=== PATIENT | female | born 1990 | race Caucasian/White ===

== ENCOUNTER 2022-06-02 13:24 | Outpatient (CLI) | payer OTHER, SELFPAY ==
--- NOTE | ~2022-06-02 | MM_ITS ---
EXAMINATION: MM diagnostic verena BI w aleksander HISTORY: Intermittent breast pain. Maternal history of breast cancer. TECHNIQUE: ML, MLO and CC 3-D tomosynthesis images of both breasts were performed and synthetic 2-D i mages were generated. CAD analysis was submitted and interpreted. COMPARISON: None BREAST PARENCHYMAL COMPOSITION: There are scattered areas of fibroglandular density. FINDINGS: No suspicious mass or architectural distortion, malignant calcification, skin thickening or retraction is detected. IMPRESSION: 1. Negative 2. Routine mammographic screening beginning at age 40 is recommended BI-RADS Category 1: Negative Reviewed, dictated and finalized at location A. CH OFFICER
== END 2022-06-02 13:25 | disposition home or self-care (01) ==
LOC: ANHIMG 13:28
PROVIDERS: PCP Family Medicine; Visit Provider Nurse Practitioner Obstetrics & Gynecology
DX: N64.4 Mastodynia (principal)
CPT/HCPCS: 77062; 77066; G0279

== ENCOUNTER 2024-11-17 13:30 | Outpatient (CLI) | payer BC, SELFPAY ==
--- NOTE | ~2024-11-17 | MM_ITS ---
EXAMINATION: MM screening verena BI w aleksander HISTORY: Screening mammogram TECHNIQUE: Craniocaudal and mediolateral oblique 3-D tomosynthesis images were obtained and synthetic 2-D images were generated. CAD analysis was submitted and interpreted. COMPARISON: 06/02/2022 BREAST PARENCHYMAL COMPOSITION:Not Dense. There are scattered areas of fibroglandular density. FINDINGS: No suspicious mass, calcification, or architectural distortion are identified in either maciej ast to suggest malignancy. There has been no suspicious interval change. IMPRESSION: No mammographic evidence of malignancy. Recommend routine screening mammography in one year. BI-RADS Category 1: Negative Reviewed, dictated and finalized at location .
--- OUTSIDE RECORDS SUMMARY | 2024-11-17 15:19 | XMS_ITS | Referral Summary ---
Author Organization [facility] al Address [address] [place] [address] Care Team Providers Care Welding Machine Operator Electron Beam Name Role Phone Audelia Douglas MD Primary Care Provider Encounters Date Type Department Care Team Description 09/02/2024 6:15 PM BOWLING TEACHER Office Visit [facility] at [address] [address] Swetha Florez, ADRIAN Sore throat (Primary Dx); Laryngitis from Last 3 Months Allergies No known active allergies Medications no115/iron/foli c acid ( 19 ORAL) Take 1 tablet by mouth Active acetaminophen (TYLENOL) 325 mg tablet Take 2 tablets (650 mg total) by mouth every 4 (four) hours as needed for pain 60 tablet 9 Active Additional Information Patient not taking.Reported on 09/02/2024 ibuprofen (ADVIL,MOTRIN) 600 mg tabletIndicatio ns:Cramps,Pain Take 1 tablet (600 mg total) by mouth every 6 (six) hours as needed for pain 60 tablet 9 Active Additional Information Patient not taking.Reported on 09/02/2024 Active Problems Problem Noted Date Diagnosed Date Encounter for planned induction of labor 019 Overview (04/22/2019): 1. Induction of labor for gHTN: OT, increase per protocol. AROM @0940, clear. Will start AI now given recurrent variables. 2. gHTN: Mild range BP in [facility] and in [facility]. CMP/CBC WNL in [facility], UPC 0.1. SR BP @ 1125, mild range on repeat. Overall mild range-normotensive. Asx. 3. FWB: Continuous monitoring. tracing category II, reassured by moderate variability and rapid return to baseline. 4. ID: HIV negative. GBS negative per patient report. Membrane Status: AROM @0940 on 04/22 5. Indications for UDS: none 6. MOF: Plans to breastfeed. 7. MOC: Plans to use IUD at PP visit for contraception. 8. Pain management: Epidural placed. 9. Post DVT prophylaxis: Patient has the following moderate risk factors: BMI>30. Her post prophylaxis plan is SCDs and early ambulation care following vaginal delivery 04/22 Overview (04/23/2019): # ID: Afebrile. No signs/symptoms of infection. # Heme: EBL 100 mL. No symptoms acute blood loss anemia. # CV/Pulm: Gestational hypertension - Blood pressures well controlled on no medications. Asymptomatic, denies FIORE/RUQ pain/vision changes. CBC/CMP wnl, UPC 0.1. # GI/: Tolerating PO. Voiding spontaneously. # Pain: Controlled with above regimen. # Post DVT prophylaxis: Patient has the following moderate risk factors: None. Her post prophylaxis plan is SCDs and early ambulation # MOC: Desires IUD at visit; declines bridge. # MOF: # Disposition: Continue routine care Gestational hypertension affecting second pregna ncy 04/19/2019 Overview (04/19/2019): - [facility] VISIT 04/19/2019: - BP mild range mild range - no neuro symptoms - labs unremarkable - urine unremarkable - DX GHTN based on BP today in [facility] and BP at 32 week appointment on - return precautions given -Patient wishes to deliver at [place] but OB is at [facility]. IOL scheduled through [facility] and approved by Dr. Nino. Patient instructed to bring all of her records to IOL Immunizations Immunization Administration Dates Next Due Influenza, Unspecified 03/23/2019 Social History Tobacco Use Types Packs/Day Years Used Date Smoking Tobacco: Never Smokeless Tobacco: Never Alcohol Use Standard Drinks/Week Comments Not Currently 0 (1 standard drink = 0.6 oz pur e alcohol) social Comments No Sex and Gender Information Value Date Recorded Sex Assigned at Not on file Legal Sex Female 9:07 AM BOWLING TEACHER Gender Identity Not on file Sexual Orientation Not on file Last Filed Vital Signs Vital Sign Reading Time Taken Comments Blood Pressure 128/77 09/02/2024 6:22 PM BOWLING TEACHER Pulse 62 09/02/2024 6:22 PM BOWLING TEACHER Temperature 36.8 C (98.3 F) 09/02/2024 6:22 PM BOWLING TEACHER Respiratory Rate 18 09/02/2024 6:22 PM BOWLING TEACHER Oxygen Saturation 97% 09/02/2024 6:22 PM BOWLING TEACHER Inhaled Oxygen Concentration - - Weight 103.6 kg (228 lb 4.8 oz) 09/02/2024 6:22 PM BOWLING TEACHER Height 166.4 cm (5' 5.51 ) 09/02/2024 6:22 PM CS T Body Mass Index 37.4 09/02/2024 6:22 PM BOWLING TEACHER Plan of Treatment Not on file Procedures Procedure Name Priority Date/Time Associated Diagnosis Comments POC INFLUENZA A/B, COVID-19 ANTIGEN Routine 09/02/2024 7:03 PM BOWLING TEACHER Laryngitis POCT RAPID STREP Routine 09/02/2024 6:44 PM BOWLING TEACHER Laryngitis from Last 3 Months Results * POC Influenza A/B, COVID-19 antigen (09/02/2024 7:03 PM BOWLING TEACHER) Influenza A Ag, POC Negative Negative [facility] Influenza B Ag, POC Negative Negative [facility] COVID-19 Ag POC Presumptive Negative Presumptive Negative, Invalid [facility] Nasal 09/02/2024 7:03 PM BOWLING TEACHER us Swetha Florez [employer] CASE WORKER POINT OF CARE TEST ORDERAB LES Final Result [facility] [address] [place] [address] * POCT rapid strep A (09/02/2024 6:44 PM BOWLING TEACHER) Rapid Strep A, POC Negative Negative Swab 09/02/2024 6:44 PM BOWLING TEACHER Swetha Florez [employer]OTECTIVE SERVICES CASE WORKER POINT OF CARE TEST ORDERAB LES Final Result from Last 3 Months Insurance [facility] Advance Directives For more information, please contact: [phone] * Full Code (Latest Code Status on File) Date Activated Date Inactivated Comments 04/22/2019 5:05 PM 04/24/2019 6:52 PM * Full Code Date Activated Date Inactivated Comments 04/22/2019 7:12 AM 04/22/2019 5:04 PM Full CPR in case of cardiopulmonary arrest Care Teams Welding Machine Operator Electron Beam Relationship Specialty Start Date End Date Audelia Douglas MD [address] [facility] [address] [place] [address] PCP - General 04/19/19
--- OUTSIDE RECORDS SUMMARY | 2024-11-17 15:19 | XMS_ITS | Clinical Summary ---
Author Organization [facility] Care Team Providers Care Piece Maker Name Role Phone Unavailable Primary Care Provider Unavailabl e Social History Tobacco Use Types Packs/Day Years Used Date Smoking Tobacco: Never Assessed Comments Unknown Sex and Gender Information Value Date Recorded Sex Assigned at Not on file Legal Sex Female 10:31 AM GOLD BLOWER Gender Identity Not on file Sexual Orientation Not on file Plan of Treatment Health Maintenance Due Date Last Done Comments Hepatitis C Virus (HCV) Screening 1991 TdaP Immunization 1991 Hepatitis B Immunization (1 of 3 - 19+ 3-dose series) 2010 Pap Smear 01/08/2012 Cervical Cancer Screening (CCS) 2021 HPV/Cotest 2021 Influenza Immunization (#1) 2024 SARS-COV-2 Immunization ( season) 2024 Respiratory Syncytial Virus (RSV) Immunization (Adult) (1 - 1-dose 75+ series) 2066 Meningococcal Immunization (ACWY) Aged Out No longer eligible based on patient's age to complete this topic Pneumococcal Immunization Combined Aged Out No longer eligible based on patient's age to complete this topic Rotavirus Immunization Aged Out No lo nger eligible based on patient's age to complete this topic
--- OUTSIDE RECORDS SUMMARY | 2024-11-17 15:19 | XMS_ITS | Data Portability ---
Author Organization [facility] Address [address] [place] [address] [address] Care Team Providers Care Manager Knowledge Name Role Phone HAYLEE GREENE Primary Care Provider Assessment No assessment recorded. Plan of Treatment Reminders Order Date Submit Date Provider Last Modified By Organization Details Last Modified Time Details Appointments None recorded. Lab pap, IG + HR HPV - HPV regardless but if HPV is positive need subtyping 16,18/45add ct/gc/trich [address] [facility] (Lab), [address], [place], [address], 5 11:57:16 hereditary breast + gynecologic cancer multigene analysis, blood or tissue 2024 025 [email or web address] [facility], [address], [address], [place], [address], 5 13:00:18 Referral None recorded. Procedures None recorded. Surgeries None recorded. Imaging US, pelvis 2021 022 [email or web address] [place], [address], [place], [address], 20:35:56 US, transvagina l 2021 022 [email or web address], [address], [place], [address], 20:35:56 US, breast, unilateral - May do mammogram if necessary [address] [facility], [address], [address], [place], [address], 14:35:08 US, pelvis, complete [address] [facility] [address], [place], [address], 14:34:56 Medication Orders None recorded. Patient TargetsNo targets recorded. Patient InstructionsNo instructions recorded. Reason for Referral None Reported. Results Created Date Observation Date Name Description Value Unit Range Abnormal Flag Note LastModifiedBy Organization Detail LastModifiedTime 05/24/20 22 05/24/2022 IMAGE GUIDE D PAP AND HPV REGAR DLESS image guided Pap, HPV regardless of Pap result SEE RESULT S BELOW CASE REPOR T: Cytol ogy Gynec ologi marcy Repor t Case: [id number] Provi shani: Reji Raymond Colle cted: 05/24 1654 MARKETING MGR Order ing Locat ion: [place] Patho logy Recei zeus: 05/25 1104 First Scree n: Ruchi Llanos, CT Speci men: Scree tejas Pap - Image d, Cervi x STATE MENT OF ADEQU ACY: Satis facto ry for evalu ation Trans forma tion zone compo nent prese nt FINAL DIAGN OSIS: Negat liza for Intra epith elial Lesio n or Evelin arnold (NIL) . Funga l organ isms morph ologi eveline consi stent with Kellie da spp. Elect adore romero danica d by Ruchi Llanos, CT on 2021 at 2:18 PM ----- ----- ----- ----- ----- ----- ----- ----- ----- ----- ----- ----- ----- ----- ----- ----- ----- ---- HPV RESUL TS: HPV mRNA E6/E7 : No HPV mRNA Detec bonifacio NOTE: This high risk HPV mRNA assay detec ts fourt een high- risk HPV types (16, 18, 31, 33, 35, 39, 45, 51, 52, 56, 58, 59, 66, 68) witho ut diffe renti ation . COMME NT: Note: This speci men was revie wed by a Cytot echno logis t and/o r Patho logis t (as indic ated in this repor t) after evalu ation using the Thinp rep Imagi ng Syste m. CLINI MARCY INFOR MATIO N: Menst rual Statu s: LMP (if appli cable ): Clini marcy Histo ry/Pr eviou s Pap: Type of Neopl anna (if appli cable ): Signi fican t Clini marcy Findi ngs: Other Histo ry: Hormo jose (if appli cable ): PAP EDUCA SEBASTIAN L NOTE: The Pap Test is a scree tejas test with an inher ent false negat liza rate. Liqui d-bas ed sampl ing may decre ase, but will not elimi annie, false negat liza resul ts. A negat liza resul t does not precl ude the prese nce and/o r devel opmen t of disea se, since the prese nce of abnor mal cells in the sampl e depen ds on the locat ion of the lesio n and sampl ing techn ique. Katrin nued regul ar scree tejas is the best metho d of cance r preve ntion . If repor bonifacio cytol ogic findi ng do not corre late with physi marcy and/o r histo rical findi ngs, furth er inves tigat ion is recom rocio d, as clini eveline richardson nted. Not Available [facility] (Lab) [address] [facility], [place], [address], 05/29/2022 15:22:04 05/24/20 22 05/24/2022 TRICH OMONA S VAGIN LYUDMILA (RRNA ) trichomonas vaginalis ribosomal RNA (rrna) Negati ve negati ve Not Available [facility] (Lab) [address] [facility], [place], [address], 05/29/2022 15:22:05 05/24/20 22 05/24/2022 CT/GC (YOLA) , THINP REP VIAL chlamydia trachomatis, PCR Negati ve negati ve Not Available [facility] (Lab) [address] [facility], [place], [address], 05/29/2022 15:22:06 05/24/20 22 05/24/2022 CT/GC (YOLA) , THINP REP VIAL neisseria gonorrhoeae, PCR Negati ve negati ve Not Available [facility] (Lab) [address] [facility], [place], [address], 05/29/2022 15:22:06 11/06/19 25 11/05/2024 IMAGE GUIDE D PAP AND HPV REGAR DLESS image guided Pap, HPV regardless of Pap result SEE RESULT S BELOW abnormal CASE REPOR T: Cytol ogy Gynec ologi marcy Repor t Case: [id number] Provi shani: Deborah Townsend , ANP, DIESEL PLANT OPERATOR Colle cted: 11/05 1325 Order ing Locat ion: [place] Patho logy Recei zeus: 11/06 0945 First Scree n: Nupur Caraballo, CT Patho logis t: Kain Leiva MD Speci men: Aly lazaro Pap - Image d, Cervi x STATE MENT OF ADEQU ACY: Satis facto ry for evalu ation Trans forma tion zone compo nent prese nt ----- ----- ----- ----- ----- ----- ----- ----- ----- ----- ----- ----- ----- ----- ----- ----- ----- ---- FINAL DIAGN OSIS: Epith elial Cell Abnor malit y, Squam ous Cell: Atypi marcy Squam ous Cells of Undet ermin ed Reza deluna (ASC- US). Elect adore cardenas by Kain Leiva MD on 2024 at 1053 CDT ----- ----- ----- ----- ----- ----- ----- ----- ----- ----- ----- ----- ----- ----- ----- ----- ----- ---- HPV RESUL TS: HPV mRNA E6/E7 : Posit liza - HPV mRNA Detec bonifacio HPV GENOT YPE 16 (YOLA) : Not Detec bonifacio HPV GENOT YPE 18/45 (YOLA) : Not Detec bonifacio NOTE: This high risk HPV mRNA assay detec ts fourt een high- risk HPV types (16, 18, 31, 33, 35, 39, 45, 51, 52, 56, 58, 59, 66, 68) witho ut diffe renti ation . This assay can diffe renti ate HPV 16 from HPV 18/45 , but does not diffe renti ate betwe en HPV 18 and HPV 45. A negat liza HPV 16, 18/45 genot ype assay resul t does not exclu de the possi bilit y of cytol ogic abnor malit ies or of futur e or under lying TRINH 1, TRINH 3 or cance r. COMME NT: Slide scree mary ann valentin cao due to rejec tion by the Thinp rep Imagi ng Syste m. CLINI MARCY INFOR MATIO N: Menst rual Statu s: LMP (if appli cable ): Clini marcy Histo ry/Pr eviou s Pap: Type of Neopl anna (if appli cable ): Reza archer Clini marcy Findi ngs: Other Histo ry: Hormo jose (if appli cable ): SUGGE STED FOLLO W-UP: Follo w up as warra nted, based on curre nt guide lines and indiv idual patie nt consi derat ions. Not Available [facility] (Lab) [address] [facility], [place], [address], 11/10/2024 11:57:16 11/06/19 25 11/05/2024 CT/GC (YOLA) , THINP REP VIAL chlamydia trachomatis, PCR Negati ve negati ve Not Available [facility] (Lab) [address] [facility], [place], [address], 11/10/2024 11:57:17 11/06/19 25 11/05/2024 CT/GC (YOLA) , THINP REP VIAL neisseria gonorrhoeae, PCR Negati ve negati ve Not Available [facility] (Lab) [address] [facility], [place], [address], 11/10/2024 11:57:17 11/06/19 25 11/05/2024 TRICH OMONA S VAGIN LYUDMILA (RRNA ) trichomonas vaginalis ribosomal RNA (rrna) Negati ve negati ve Not Available [facility] (Lab) [address] [facility], [place], [address], 11/10/2024 11:57:17 05/29/20 22 05/29/2022 US, pelvi s No observ ation record ed. [email or web address] [place] [address], [place], [address], 05/29/2022 18:19:52 05/29/20 22 05/29/2022 US, trans vagin al No observ ation record ed. [email or web address] [place] [address], [place], [address], 05/29/2022 18:19:42 05/29/20 22 05/29/2022 US, pelvi s No observ ation record ed. MERARI Garcia [address], [place], [address], 06/05/2022 19:05:20 06/02/20 06/02/2022 MAMMO , diagn ostic , digit al, bilat eral No observ ation record ed. [facility] [address], [place], [address], 06/15/2022 12:04:15 Result Notes None recorded. Problems Name Problem SNOMED Code Status Onset Date Resolution Date Notes Provider Name and Address Organization Details Recorded Time Uterine size for dates discrepa ncy Completed 201805/23/2022 Uterine size-gris e discrepa ncy, third trimeste r;Record ed Elsewher e: No Locat ion: [facility] S ource: EHR Radio Board Operator Announcer adam: N Practi ce ID: [id number] Russ lable Time: 08:30:00 AM Trena Bansal [facility] 2 23:00:54 Clinical finding Completed 201905/23/2022 Other specifie d disorder s of breast;R ecorded Elsewher e: No Locat ion: [facility] S ource: EHR Radio Board Operator Announcer adam: N Practi ce ID: 0001 Russ lable Time: 10:15:00 AM Trena Bansal [facility] 2 23:00:54 Normal pregnanc y in multigra nova [id number] Completed 201805/23/2022 Encounte r for suprvsn of normal pregnanc y, third trimeste r;Record ed Elsewher e: No Locat ion: [facility] S ource: EHR Radio Board Operator Announcer adam: N Practi ce ID: [id number] Russ lable Time: 09:00:00 AM Trena mc [facility] 2 23:00:55 Antenata l screenin g for malforma tion Completed 201805/23/2022 Encounte r for antenata l screenin g for malforma tions;Re corded Elsewher e: No Locat ion: [facility] S ource: EHR Radio Board Operator Announcer adam: N Practi ce ID: [id number] Russ lable Time: 08:30:00 AM Trena mc [facility] 2 23:00:55 Antenata l screenin g Completed 201805/23/2022 Encounte r for other antenata l screenin g follow-u p;Record ed Elsewher e: No Locat ion: Nina diana [facility] S ource: EHR Radio Board Operator Announcer adam: N Enidti ce ID: [id number] Russ lable Time: 02:00:00 PM Trena mc [facility] 2 23:00:54 Pregnanc y detectio n examinat ion Completed 201805/23/2022 Encounte r for pregnanc y test, result positive ;Recorde d Elsewher e: No Locat ion: [facility] S ource: EHR Radio Board Operator Announcer adam: N Enidti ce ID: [id number] Russ lable Time: 02:00:[address] [facility] 2 23:00:55 Acute vaginiti s [id number] Completed 201805/23/2022 Vaginiti s;Record ed Elsewher e: No Locat ion: [facility] S ource: EHR Radio Board Operator Announcer adam: N Enidti ce ID: [id number] Russ lable Time: 09:00:[address]rena [address]ansal [facility] 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 2 23:00:55 Pityrias is versicol or [id number] Completed 201805/23/2022 Tinea versicol or;Recor ded Elsewher e: No Locat ion: Nina diana [facility] S ource: EHR Radio Board Operator Announcer adam: N Practi ce ID: [id number] Russ lable Time: 02:00:[address] [facility] 2 23:00:55 Gestatio n period, 35 weeks [id number] Completed 201805/23/2022 35 weeks gestatio n of pregnanc y;Record ed Elsewher e: No Locat ion: Nina diana [facility] S ource: EHR Radio Board Operator Announcer adam: N Practi ce ID: [id number] Russ lable Time: 08:30:[address] AM Trena Bansal [facility] 2 23:00:55 Gestatio n period, 8 weeks [id number] Completed 201805/23/2022 8 weeks gestatio n of pregnanc y;Record ed Elsewher e: No Locat ion: Ektatabby adalgisa [facility] S ource: EHR Radio Board Operator Announcer adam: N Practi ce ID: [id number] Russ lable Time: 01:45:[address] [facility] 2 23:00:55 Threaten ed miscarri age [id number] Completed 201805/23/2022 Threaten ed ;Recorde d Elsewher e: No Locat ion: Nina diana [facility] S ource: EHR Radio Board Operator Announcer adam: N Practi ce ID: [id number] Russ lable Time: 10:30:00 AM Trena Bansal [facility] 2 23:00:55 Educatio n Completed 201805/23/2022 Encounte r for other general counseli ng and advice on contrace ption;Re corded Elsewher e: No Locat ion: Livan adalgisa [facility] S ource: EHR Radio Board Operator Announcer adam: N Practi ce ID: [id number] Russ lable Time: 09:00:[address] Trena Bansal [facility] 2 23:00:[address] Concept Completed 201905/23/2022 Encntr for general adult medical exam w/o abnormal findings ;Recorde d Elsewher e: No Locat ion: Nina diana [facility] S ource: EHR Radio Board Operator Announcer adam: N Enidti ce ID: 0001 Russ lable Time: 08:30:37 AM Trena Bansal [facility] 2 23:00:55 Gestatio n period, 37 weeks [id number] Completed 201805/23/2022 37 weeks gestatio n of pregnanc y;Record ed Elsewher e: No Locat ion: Nina diaan [facility] S ource: EHR Radio Board Operator Announcer adam: N Enidti ce ID: [id number] Russ lable Time: 10:00:00 AM Trena Bansal [facility] 2 23:00:55 Lochia finding Completed 201805/23/2022 Encounte r for routine postpart um follow-u p;Record ed Elsewher e: No Locat ion: Lvian adalgisa [facility] S ource: EHR Radio Board Operator Announcer adam: N Enidti ce ID: [id number] Russ lable Time: 09:00:[address] AM Trena Bansal [facility], [facility] 2 23:00:55 Finding of contents of cervix [id number] Completed 201805/23/2022 Weeks of gestatio n of pregnanc y not specifie d;Record ed Elsewher e: No Locat ion: Nina diana [facility] S ource: EHR Radio Board Operator Announcer adam: N Enidti ce ID: [id number] Russ lable Time: 10:30:00 AM Trena Bansal [facility] 2 23:00:55 Pregnanc y-induce d hyperten hattie Completed 201805/23/2022 Gestatio nal htn w/o signific ant proteinu aminta, third trimeste r;Record ed Elsewher e: No Locat ion: Livan adalgisa [facility] S ource: EHR Radio Board Operator Announcer adam: N Enidti ce ID: 0001 Russ lable Time: 10:00:00 AM [facility] 23:00:54 Secondar y amenorrh ea [id number] Completed 201805/23/2022 Secondar y amenorrh ea;Enidt ice ID: 0001 Trena Bansal [facility] 2 23:00:54 Problem Notes None recorded. Procedures Surgical History Date Name Laterality Status Provider Name and Address Organization Details Recorded Time 07/23/19 23 Other completed DEBORAH WHITMAN NP [address], [place], [address], [facility] 11/05/2024 12:39:37 05/24/20 22 Date of Last Pap Smear completed Trena Bansal [facility] 06/06/2022 14:36:25 07/20/20 20 IUD Removal completed Lola Jolly ADRIAN- [address], [place], [address], [facility] 07/20/2020 11:40:57 06/04/20 20 IUD Insertion completed Lola Jolly CORRINA [address], [place], [address], [facility] 06/04/2020 16:26:28 07/23/19 12 extraction of wisdom tooth completed Karen Jamison [facility] 02/03/2020 16:39:53 Imaging Results Imaging Date Name Status LastModified by Organization Details LastModified Time 05/29/2022 US, pelvis completed [email or web address], [place], [address], 05/29/2022 18:19:52 05/29/2022 US, transvaginal completed [email or web address] [facility] [address], [place], [address], 05/29/2022 18:19:42 05/29/2022 [facility] [address], [place], [address], 06/05/2022 19:05:20 06/02/2022 MAMMO, diagnostic, digital, bilateral completed [facility] [address], [place], [address], 06/15/2022 12:04:15 Procedure Notes None recorded. Medical Equipment None Reported. Allergies No known drug allergies Medications Name Sig Start Date Stop Date Status Note LastModified by Organization Details LastModified Time Mirena 21 mcg/24 hr (up to 8 years) 52 mg intrauter ine device IUD 05/24 completed Not Available Not Available Not Available fluconazo le 100 mg tablet TK 2 TS PO FOR 1 DAY THEN TK 1 T PO QD FOR 13 DAYS 06/04 completed Not Available Not Available Not Available fluconazo le 150 mg tablet take 1 tablet by oral route once 06/06 completed Not Available Not Available Not Available fluconazo le 200 mg tablet TK 2 TS PO FOR 1 DAY THEN TK 1 T PO QD FOR 14 DAYS 06/04 completed Not Available Not Available Not Available Flagyl 500 mg tablet take 1 tablet by oral route every 12 hours 03/03 completed Prescrib ed Elsewher e: No Locat ion: Nina [facility] odify By: hieu larson DateTime : 02/01/20 09:26:57 AM Not Available Not Available Not Available cephalexi n 500 mg capsule TK 1 C PO QID 06/04 completed Not Available Not Available Not Available nystatin 100,000 unit/gram topical cream BARRY AA TID 06/04 completed Not Available Not Available Not Available NuvaRing 0.12 mg-0.015 mg/24 hr vaginal Insert 1 vaginal ring every month by vaginal route. 05/06 completed Not Available Not Available Not Available iron 325 mg (65 mg iron) tablet take 1 tablet by oral route every day 10/07 completed Prescrib ed Elsewher e: Yes Loca tion: Nina [facility] M odify By: bruna larson DateTime : 08/30/19 02:00:00 PM Not Available Not Available Not Available Daily Vitamin Formula tablet 06/06 completed Prescrib ed Elsewher e: Yes [facility] By: jness Simons r DateTime : 10/08/19 08:30:37 AM Not Available Not Available Not Available 28 mg iron-800 mcg tablet take 1 capsule by oral route every day 07/20 completed Prescrib ed Elsewher e: Yes Loca tion: [facility] M odify By: camille Simons r DateTime : 08/30/19 02:00:00 PM Not Available Not Available Not Available Mounjaro 2.5 mg/0.5 mL subcutane ous pen injector INJECT 2.5MG SUBCUTAN EOUS EVERY WEEK 11/05 completed Not Available Not Available Not Available Vitals Date Recorded Body height Body weight Body mass index (BMI) Systolic blood pressure Diastolic blood pressure Provider Name and Address Organization Details Last Updated DateTime 05/24/2022 165.1 cm 76596.77 g 35.6 kg/m2 122 mm[Hg] 70 mm[facility]Hg[facility] 14:51:24 Date Recorded Body height Provider Name an d Address Organization Details Last Updated DateTime 06/06/2022 [facility] 06/06/2022 14:35:45 Date Recorded Systolic blood pressure Diastolic blood pressure Provider Name and Address Organization Details Last Updated DateTime 06/06/2022 124 mm[Hg] 80 mm[Hg] Lola Jolly, [facility]- [address], [place], [address], [facility] 06/06/2022 14:52:45 Date Recorded Body height Body mass index (BMI) Body weight Systolic blood pressure Diastolic blood pressure Provider Name and Address Organization Details Last Updated DateTime 11/05/2024 165.1 cm 37.3 kg/m2 863485.6 9 g 128 mm[Hg] 78 mm[Hg] Alyson Iverson [facility] 5 12:35:11 Date Recorded Body height Body mass index (BMI) Body weight Systolic blood pressure Diastolic blood pressure Provider Name and Address Organization Details Last Updated DateTime 07/20/2020 165.1 cm 35.4 kg/m2 59004.17 g 124 mm[Hg] 80 mm[Hg] Jevon Matthews [facility] 0 11:19:53 Social History Question Answer Notes LastModified by Organizat ion Details LastModified Time Tobacco Smoking Status Never Smoker Odette Montes De Oca jesusita, [facility] 06/06/2022 14:30:13 Do You Have An Advance Directive? No Information not available 05/24/2022 What Is Your Level Of Alcohol Consumption? Occasional Information not available 05/24/2022 How Many Years Have You Consumed Alcohol? 10 Information not available 05/24/2022 Are You Blind Or Do You Have Difficulty Seeing? No Information not available 05/24/2022 What Is Your Level Of Caffeine Consumption? Moderate Information not available 05/24/2022 How Much Tobacco Do You Chew? None Information not available 05/24/2022 In The 14 Days Before Symptom Onset, Have You Had Close Contact With A Laboratory-confir med COVID-19 While That Case Was Ill? No Information not available 05/24/2022 In The 14 Days Before Symptom Onset, Have You Had Close Contact With A Person Who Is Under Investigation For COVID-19 While That Person Was Ill? No Information not available 05/24/2022 Have You Been To An Area Known To Be High Risk For COVID-19? No Information not available 05/24/2022 Are You Deaf Or Do You Have Serious Difficulty Hearing? No Information not available 05/24/2022 What Type Of Diet Are You Following? VEGETARIAN Information not available 05/24/2022 What Is The Highest Grade Or Level Of School You Have Completed Or The Highest Degree You Have Received? 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 Yes Information not available 05/24/2022 Do You Use Protection During Sex? No Information not available 05/24/2022 Do You Use Your Seat Belt Or Car Seat Routinely? Yes Information not available 05/24/2022 Do You Have Smoke And Carbon Monoxide Detectors In Your Home? Yes Information not available 05/24/2022 How Much Tobacco Do You Smoke? No Information not available 05/24/2022 Do You Feel Stressed (tense, Restless, Nervous, Or Anxious, Or Unable To Sleep At Night)? [id number] Information not available 05/24/2022 Do You Use Any Illicit Or Recreational Drugs? No Information not available 05/24/2022 Do You Use Sunscreen Routinely? Yes Information not available 05/24/2022 Have You Used IV Drugs? No Information not available 05/24/2022 Sex: Unknown Functional Status Question Answer Note LastModified by Organizat ion Details LastModified Time Are you able to walk? YESWOREST Information not available 05/24/2022 Are you able to care for yourself? Yes [email or web address] Information not available 06/06/2022 What is your exercise level? Occasional jgumber Information not available 02/04/2020 Mental Status None recorded. Family History Relationship Description Onset Age of this Age Resolved Age Notes LastModified by Organization Details LastModified Time Mother Family history of breast cancer 37 [email or web address] Not available 2024 12:40:51 Father Heart disease jgumber Not available 2019 16:40:42 Father Hypercholest erolemia jgumber Not available 2019 16:41:01 Father Diabetes mellitus jgumber Not available 2019 16:41:20 Father Hypertensive disorder jgumber Not available 2019 16:41:37 Paternal Grandfather Heart disease jgumber Not available 2019 16:40:42 Paternal Grandfather Hypercholest erolemia jgumber Not available 2019 16:41:01 Paternal Grandfather Diabetes mellitus jgumber Not available 2019 16:41:20 Paternal Grandfather Hypertensive disorder jgumber Not available 2019 16:41:37 Medical History Condition Response Allergies (Food, seasonal, environmental ) Y Gynecological History Statement/Question Response Flow Moderate Date of LMP 10/11/2024 On BCP's at Conception? N N Was last menstrual period normal Y STIs/STDs N HPV Vaccine N Duration of Flow (days) 4 Current Control Method None Age at First Child 27 Are cycles usually normal N Sexually Active? Y Menses Monthly N Age of first menstrual cycle 11 Date of Last Pap Smear 05/24/2022 Sexual Problems? N Desired Control Method Partner Vas ectomy LMP Definite N Obstetrics History GPAL:G 2 P 0 0 0 2 Type Value Living 2 Total 2 Past Encounters Encounter ID Performer Location Encounter Start Date Encounter Closed Date Diagnosis/Indication Diagnosis SNOMED-CT Code Diagnosis ICD10 Code Diagnosis Note [id number] Sarah Beth Lezama [place] [address] [address] 02/04/2020 15:41:33 02/04/2020 16:22:00 Contraception care management [id number] Z30.9 Discussed all control options in great detail. Pt would like to start nuvaring. She is aware of the risks and benefits. She does not have any medical condition that is contraindi cated with the use of estrogen containing control. Pt will place the nuvaring on the first sunday following the start of her period. She is aware it is not effective for control the first month. She is also aware of the importance of timely insertion and removal. Encouraged use of condoms as the nuvaring does not protect against STD's. Will return in 3 months for med check. Consent was read and signed. Pt verbalized understand ing. [id number] Sarah Beth Lezama [place] [address] [place] [address] 02/24/2020 12:02:37 02/24/2020 15:24:10 Contraception care management [id number] Z30.9 Discussed all options in great detail and pt would like to proceed with mirena IUD. We discussed all risks and benefits. She will check her insurance coverage and if covered she will call us on the first day of her cycle to schedule placement. [id number] Sarah Beth Lezama [place] [address],[place] [address] 05/06/2020 09:18:04 05/06/2020 11:27:46 [id number] Lola [facility] [address],[place] [address] 06/04/2020 15:39:09 06/04/2020 16:50:29 Contraception care management [id number] Z30.9 test negative [id number] Z32.02 Insertion of intrauterine contraceptive device [id number] Z30.430 Patient is on her cycle and here for IUD placement. She has been counseled on all of the r/b/a of placement of an intrauteri ne device that include but are not limited to uterine perforatio n, injury to cervix, vagina, bladder, and bowel.Risk s of bleeding due to injury or increased irregular bleeding due to progestin effect of the device. Risks of infection would be increased within the first 21 days of placement with concommite nt cervicitis . She understand s that the device will need to be removed in this instance due to increased risk of Pelvic inflammato ry disease. Patient is aware she is at highter risk for STD and if contracted she could lose her fertility. Pt is aware that if ocurs that she should contact office immediatel y to rule out ectopic which could be life threatenin g. IUD will also need to be removed and this could cause miscarriag e. Patient also informed that in the event her strings are absent or embedded at the time of removal she may need to have the IUD surgically removed. She was informed of the above and properly consented. IUD placed w/o complicati on. Patient should return to office after next period to check for string placement. Patient to expect irregular bleeding but should be seen in the ED if bleeding increases to soaking a pad an hour for at least 2 hours. She verbalized understand ing. RTO x 4-6wks [id number] Lola [facility] [address],[place] [address] 07/20/2020 11:09:26 07/20/2020 12:15:02 Removal of intrauterine device [id number] Z30.432 Patient is here for IUD string check. She has decided that she wishes to have it removed.. Feels she has experience d more H/A's & cystic acne since having device placed. She expressed understand ing. It was explained that she may have bleeding or spotting after the removal of the device today as well. If cannot see the strings of this device we will need to get an US image to make that the device is still in place and not in an unobtainab le position. She expressed understand ing of all the above instructio ns. Spouse making appt for vasectomy. Aware susceptibl e for now. [id number] Lola [facility] [address],[place] [address] 05/24/2022 14:35:54 05/24/2022 18:32:00 Pain of breast 63100619 N64.4 Today we discussed updated US for breast pain & dense tissue t 9 'oclockMam mo's to start age 36yo due to family history of breast cancer mother Pain in pelvis [id number] R10.2 Will update US for right sided pain found on exam & subjective complaints .Declined need std screening Time spent in visit is a total of 22 mins with at least 50% of visit consisting of counseling and review of plan of care. [id number] Robyn Bansal [place] [address],[place] [address] 05/29/2022 16:30:29 05/29/2022 17:13:48 Pain in pelvis [id number] R10.2 [id number] Lola [facility] [address],[place] [address] 06/06/2022 14:29:29 06/06/2022 14:58:32 Pain in pelvis 26660252 R10.2 US reviewedWN LSx's have resolvedFe els this might be more ovulatory pain; has been tracking & seems to occur about 14-18 days from her LMP each month.Does n't disrupt her quality of life. Time spent in visit is a total of 15 mins with at least 50% of visit consisting of counseling and review of plan of care. Pain of breast [id number] N64.4 Imaging WNLRecomme nded Evening [place] oil supplement s for breast inflammati on/mastody chasity.Monthl y SBE's [id number] DEBORAH WHITMAN, ADRIAN [place] [address] [address] 11/05/2024 12:22:32 11/05/2024 13:12:10 Gynecologic examination 56320122 Z01.419 Annual gynecologi marcy exam performed. Patient will come back in a year unless there are new symptoms. Suggest Calcium with Vitamin D if not eating in diet. Patient advised to get annual flu shot. Recommend yearly physicals and perform monthly breast exams. Genetic testing is available for patients with family history of cancer. Engage in safe sexual practices, use condoms. Encouraged to have daily exercise. Avoid tobacco and illicit drugs, moderation of alcohol. If BMI greater than 25 dietary consult advised. If you have any questions please call or email. mammogram- PCP ordered screening mammogram at [facility]; gets yearly mammograms d/t FH of breast cancer Pap smear- pap w/ HPV collected laboratory evaluation - PCP STI testing - requested Recommende d consistent condom use and daily PNV if not on BC. Family his tory of breast cancer [id number] Z80.3 Patient reports that mother was diagnosed with breast cancer at age 37 and had lumpectomy . Patient unsure what type of breast cancer.Dis cussed genetic testing for hereditary cancer, pt interested Venereal d isease screening [id number] Z11.3 Pt requested STI testing.Di scussed the various types of STDs, related symptoms and the potential consequenc es (including effects on fertility) of STD infections . Reviewed ways to limit exposure and prevention techniques . Health Concerns Section Related Observation LastModified by Organization Detai ls LastModified Time None Recorded Concern Status LastModified by Organization Details LastModified Time None Recorded Advance Directives Directive N: Payers Encounter Date Sequence Insurance Name Policy Number Policy Morrison Covered Member ID Morrison Member ID Guarantor Name 07/20/2020 1 [facility] [id number] [facility] King [id number] [facility] 05/24/2022 1 [employer] [id number] [facility] King [id number] Michael King 05/29/2022 1 UMR [id number] [facility] King [id number] Michael King 06/06/2022 1 UMR [id number] [facility] Fernando [id number] Michael King 11/05/2024 1 [employer]: (XYW) [id number] Michaeljose maria King [id number] Michael Fernando Notes Date Note Type Note Provider Name and Address Organization Details Recorded Time 07/20/2020 text/html Patient presents for IUD insertion. MAX Littlejohn [address], [place], [address], [facility] 07/20/2020 11:41:17 05/24/2022 text/html Breast PainReported bypatient.Location :right; upper inner quadrant Onset/Timin-7 days Duration:intermitt ent Quality:dull; throbbing Severity:mild Context:premenstru al; sexually active; family history of breast cancer Modifying Factors:pressure Associated Symptoms:no fever; no chills; no skin redness; no nipple discharge; no sore nipples; breasts not full, sore, unable to express milk; no breast swelling; no arm pain; no arm swelling; no chest pain; no malaise; no breast lumpPelvic Pain/PressureRepor bonifacio bypatient.Location :right Quality:pain; tender Severity:mild; pain level 1/10 Duration:present for < 1 week Onset/Timing:const ant Alleviating Factors:none Associated Symptoms:no abdominal pain; no back pain; no chills; no constipation; no diarrhea; no dribbling; no pain with urination; normal emptying of bladder; no blood in the urine; no hesitancy; normal libido; no nausea; no vomiting; no nocturia; no urine odor; no straining; no incontinence; no fever; no feelings of urgency; no urge incontinence JOSEFINA Littlejohn [address], [place], [address], [facility] 05/24/2022 17:20:48 06/06/2022 text/html Here today for [facility] review completed due to complaints of pelvic pain. JOSEFINA Littlejohn [address], [place], [address], [facility] 06/06/2022 14:53:35 11/05/2024 text/html Annual GYNReport ed bypatient.Menstrua l cycle:Normal menses Urinary symptoms:No hematuria; No incontinence Vulva:No genital lesion Vagina:Normal vaginal discharge Breast:No breast pain; No breast lump; No nipple discharge Current Contraception:Moy h control not practiced Sexual complaints:No sexual complaints; No pain during intercourse; Normal libido Menopausal Symptoms:No menopausal symptoms; Normal vaginal lubrication Psychological symptoms:No depression; No anxiety; No PMDD Preventive measures:Encourage self breast examination; Encourage regular exercise; Encourage no tobacco use; Encourage regular mammograms starting age 40 Patient presents for annual well woman exam. Patient denies concerns today. DEBORAH WHITMAN, ADRIAN [address], [place], [address], [facility] 11/05/2024 13:05:08 OBGyn Episode Ob Episode Information Episode Created Date Number of Fetuses Patient Bloodtype Patient rh Status Prepregnancy Weight lbs Domestic Partner Domestic Partner Phone Father Name Net Developer Status 02/04/20 20 1 CLOSED Fetus Data First Name Last Name Admitted to NICU Weight (g) Sex Living Outcome Pediatric Complications Fetus ID Race Codes Race Delivery Type Full Term [id number] Vaginal Delivery Kalen Calculation Initial Kalen Date Initial Exam Date Initial Exam Provider Initial Ultrasound Date Last Menstrual Period Date Ultra Sound Weeks Gestation 0 Eighteen To Twenty Week Kalen Update Ultra Sound Date Fundal Height At Umbil Quickening Date Ultra Sound Latest Weeks Gestation Final Kalen Confirmed By Final Kalen Confirmed Date Final Kalen Date Ultra Sound Latest Days Gestation 0 0 Menstrual History Last Menstrual Date Menses Monthly On Bcp Conception Prior Menses Frequency Hcg Plus Date Menarche Onset Age Delivery Information Delivery Date Delivery Type Labor Anesthesia Weeks Gestation Incision Type Labor Labor Length Hrs Delivered By Post Complications Tubal Sterilization Discharge Date Comments 7 37 pre eclampsia Discharge Information Feeding Method Contraceptive Method Maternal HG B and HCT Levels Ob Episode Information Episode Created Date Number of Fetuses Patient Bloodtype Patient rh Status Prepregnancy Weight lbs Domestic Partner Domestic Partner Phone Father Name Net Developer Status 02/04/20 20 1 CLOSED Fetus Data First Name Last Name Admitted to NICU Weight (g) Sex Living Outcome Pediatric Complications Fetus ID Race Codes Race Delivery Type [id number] Vaginal Delivery Kalen Calculation Initial Kalen Date Initial Exam Date Initial Exam Provider Initial Ultrasound Date Last Menstrual Period Date Ultra Sound Weeks Gestation 0 Eighteen To Twenty Week Kalen Update Ultra Sound Date Fundal Height At Umbil Quickening Date Ultra Sound Latest Weeks Gestation Final Kalen Confirmed By Final Kalen Confirmed Date Final Kalen Date Ultra Sound Latest Days Gestation 0 0 Menstrual History Last Menstrual Date Menses Monthly On Bcp Conception Prior Menses Frequency Hcg Plus Date Menarche Onset Age Delivery Information Delivery Date Delivery Type Labor Anesthesia Weeks Gestation Incision Type Labor Labor Length Hrs Delivered By Post Complications Tubal Sterilization Discharge Date Comments 9 Discharge Information Feeding Method Contraceptive Method Maternal HG B and HCT Levels
--- OUTSIDE RECORDS SUMMARY | 2024-11-17 15:19 | XMS_ITS | Clinical Summary ---
Author Organization [facility] al Address [address] [place] [address] Care Team Providers Care Organ Pipe Maker Metal Name Role Phone Audelia Douglas MD Primary Care Provider Allergies No known active allergies Medications no115/iron/foli [...] variables. 2. gHTN: Mild range BP in WAC and in PNC. CMP/CBC WNL in WAC, UPC 0.1. SR BP @ 1125, mild [...] second pregna ncy 04/19/2019 Overview (04/19/2019): - [facility] VISIT 04/19/2019: - BP mild range mild range - no neuro symptoms - labs unremarkable - urine unremarkable - DX GHTN based on BP today in [facility] and BP at 32 week appointment on - return precautions given -Patient wishes to deliver at [facility] but OB is at [facility]. [facility] and approved by Dr. Nino. Patient instructed to bring all of her records to IOL Encounters Date Type Department Care Team Description 09/02/2024 6:15 PM BELT BACK OPERATOR Office Visit [facility] at [address] [address] Swetha Florez, ADRIAN Sore throat (Primary Dx); Laryngitis from Last 3 Months Immunizations Immunization Administration Dates Next Due Influenza, Unspecified 03/23/2019 Surgical History Surgery Date Site/Laterality Comments MI UNLISTED PROCEDURE DENTOALVEOLAR STRUCTURES Oral Surgery Tooth Extraction - (Added by Conv) Medical History Medical History Date Comments Encounter for supervision of normal Supervision of normal pregna ncy - (Added by Conv) Encounter for full-term unco mplicated delivery (normal spontaneous vag inal delivery) - (Added by Conv) Family History Medical History Relation Name Comments Diabetes Father Family history of diabetes mellitus - (Added by Conv) Heart disease Father Family history of cardiac disorder - (Added by Conv) Hypertension Father Family history of hypertension - (Added by Conv) Breast cancer Mother Family history of malignant neoplasm of breast - (Added by Conv) Relation Name Status Comments Father Mother Social History Tobacco Use Types Packs/Day Years Used Date Smoking Tobacco: Never Smokeless Tobacco: Never Alcohol Use Standard Drinks/Week Comments Not Currently 0 (1 standard drink = 0.6 oz pur e alcohol) social Comments No Sex and Gender Information Value Date Recorded Sex Assigned at Not on file Legal Sex Female 9:07 AM BELT BACK OPERATOR Gender Identity Not on file Sexual Orientation Not on file Obstetrics History Para Term AB IAB SAB Ectopic Multiple Livin g Live Births 2 2 2 0 2 2 Date Outcome GA Total Labor Labor/2nd/3rd Weight Sex Type Anes PTL Sheela A1 A5 Name Clin 2016 Term 37w 0d M Vag-S pont Epidur al N Livin g Forrest HAIR Complications:Pre eclampsia 2018 Term 37w 1d 0h 05m 0h 05m 3.04 kg (6 lb 11.2 oz) F Vag-S pont Epidur al N Livin g 8 9 REBECCA KING, Ashley myers MD Complications:None Delivery Location:[facility] ([facility]) Last Filed Vital Signs Vital Sign Reading Time Taken Comments Blood Pressure 128/77 09/02/2024 6:22 PM BELT BACK OPERATOR Pulse 62 09/02/2024 6:22 PM BELT BACK OPERATOR Temperature 36.8 C (98.3 F) 09/02/2024 6:22 PM BELT BACK OPERATOR Respiratory Rate 18 09/02/2024 6:22 PM BELT BACK OPERATOR Oxygen Saturation 97% 09/02/2024 6:22 PM BELT BACK OPERATOR Inhaled Oxygen Concentration - - Weight 103.6 kg (228 lb 4.8 oz) 09/02/2024 6:22 PM BELT BACK OPERATOR Height 166.4 cm (5' 5.51 ) 09/02/2024 6:22 PM CS T Body Mass Index 37.4 09/02/2024 6:22 PM BELT BACK OPERATOR Plan of Treatment Health Maintenance Due Date Last Done Comments Cervical Cancer Screening 1991 Depression Screening 1991 Hepatitis C Screening 1991 Varicella Vaccines (1 of 2 - 13+ 2-dose series) 01/08/2004 Hepatitis B Screening 2009 Regular Well Visit/Exam 18-64 2009 Covid-19 Vaccine (2 - season) 2024 09/28/2020 DTaP/Tdap/Td Vaccine (3 - Td or Tdap) 03/25/2029 03/25/2019, 12/22/2016 Influenza Vaccine Completed 04/17/2024, , 03/23/2019, Additional history exists HPV Vaccines Aged Out No longer eligi ble based on patient's age to complete this topic Pneumococcal vaccine <65 Aged Out No longer eligible based on patient's age to complete this topic Procedures Procedure Name Priority Date/Time Associated Diagnosis Comments POC INFLUENZA A/B, COVID-19 ANTIGEN Routine 09/02/2024 7:03 PM BELT BACK OPERATOR Laryngitis POCT RAPID STREP Routine 09/02/2024 6:44 PM BELT BACK OPERATOR Laryngitis from Last 3 Months Results * POC Influenza A/B, COVID-19 antigen (09/02/2024 7:03 PM BELT BACK OPERATOR) Influenza A Ag, POC Negative Negative [facility] Influenza B Ag, POC Negative Negative [facility] COVID-19 Ag POC Presumptive Negative Presumptive Negative, Invalid [facility] Nasal 09/02/2024 7:03 PM BELT BACK OPERATOR us Swetha Florez NP POINT OF CARE TEST ORDERAB LES Final Result [facility] [address] [place] [address] * POCT rapid strep A (09/02/2024 6:44 PM BELT BACK OPERATOR) Rapid Strep A, POC Negative Negative Swab 09/02/2024 6:44 PM BELT BACK OPERATOR Swetha Florez INTERMEDIATE MANAGER POINT OF CARE TEST ORDERAB LES Final Result from Last 3 Months Insurance [facility]O [place]: [place] [address] [facility]/PPO Address: [address] [address] [place] [address] [facility] Advance Directives For more information, please contact: [phone] * Full Code (Latest Code Status on File) Date Activated Date Inactivated Comments 04/22/2019 5:05 PM 04/24/2019 6:52 PM * Full Code Date Activated Date Inactivated Comments 04/22/2019 7:12 AM 04/22/2019 5:04 PM Full CPR in case of cardiopulmonary arrest Care Teams Organ Pipe Maker Metal Relationship Specialty Start Date End Date Audelia Douglas MD [address] [facility] [address] [place] [address] PCP - General 04/19/19
== END 2024-11-17 13:31 | disposition home or self-care (01) ==
LOC: CHSIMG 13:32
PROVIDERS: PCP Family Medicine; Visit Provider Physician Assistant
DX: Z12.31 Encounter for screening mammogram for malignant neoplasm of breast (principal); Z80.3 Family history of malignant neoplasm of breast
CPT/HCPCS: 77063; 77067